=== PATIENT | female | born 1995 | race African-American/Black ===

== ENCOUNTER 2019-06-19 01:20 | Inpatient (IN) | payer OTHER ==
[2019-06-19 01:58] LABS: Urine Appearance Clear; Urine Bilirubin Negative (Negative); Urine Blood Negative (Negative); Urine Color Straw; Urine Glucose Negative (Negative); Urine Ketones Negative (Negative); Urine Nitrite Negative (Negative); Urine Protein Negative (Negative); Urine Specific Gravity 1.006 (1.010-1.030); Urine Urobilinogen Negative (Negative)
[2019-06-19 02:17] LABS: Urine Benzodiazepine Screen None Detected (None Detect); Urine Opiates Screen None Detected (None Detect)
[2019-06-19] MEDS ORDERED: Buffered Lidocaine 1% SYRIN* 1 ML/SYRINGE INTRADERM ONE (03:02)
[2019-06-19] MEDS ORDERED: ceFOXitin 2 GM IVPREMIX* 2 GM/50 ML BAG IVPB ONE (03:02)
[2019-06-19] MEDS ORDERED: Lactated Ringers 1000 ML Bag* 1,000 ML IV ONE (03:02)
[2019-06-19 03:40] LABS: Hematocrit 39 % (35-47); Hemoglobin 13.2 g/dL (12.0-16.0); Mean Corpuscular HGB Conc 34 g/dL (31-36); Mean Corpuscular Hemoglobin 30 pg (27-31); Mean Corpuscular Volume 88 fL (80-97); Platelet Count 168 10^3/uL (150-450); Red Blood Count 4.42 10^6 /uL (3.70-4.87); Red Cell Distribution Width 13 % (10-15); White Blood Count 11.1 10^3/uL (3.5-10.8)
[2019-06-19 03:54] LABS: ALT 13 U/L (7-52); AST 18 U/L (13-39); Albumin 3.6 g/dL (3.2-5.2); Alkaline Phosphatase 142 U/L (34-104); Anion Gap 9 mmol/L (2-11); BUN/Creatinine Ratio 12.7 (8-20); Blood Urea Nitrogen 7 mg/dL (6-24); CO2 Carbon Dioxide 22 mmol/L (22-32); Chloride 105 mmol/L (101-111); EGFR African American 168.8 (>60); EGFR Non-African American 139.5 (>60); Globulin 3.6 g/dL (2-4); Glucose 74 mg/dL (70-100); Potassium 3.7 mmol/L (3.5-5.0); Sodium 136 mmol/L (135-145); Total Protein 7.2 g/dL (6.4-8.9)
[2019-06-19] MEDS ORDERED: Lactated Ringers 1000 ML Bag* 1,000 ML IV SCH ×2 (04:00→10:00)
--- NOTE | 2019-06-19 04:03 | HP ---
General Information - Reason for Visit pain at c/s scar site, term , history of x 2, short interval - General Information Maternal Age: 23 Grav: 3 Para: 2 Estimated Due Date: 06/19/19 Determined By: 2nd Trimester USN Gestational Age in Weeks/Days: 40w0d Maternal Blood Type and Rh: O Positive - Results this Serology/RPR Result: Non-Reactive Rubella Result: Immune HBsAg Result: Negative HIV Result: Negative Past Medical History Delivery History: Hx C/Section - History of section x 2. G1 for NRFHT. G2 elective repeat on 05/19/2019. This gestation is Short Interval Pregnanc Pertinent Past Medical History: Non-Contributory Pertinent Past Surgical History: See Records Pertinent Family History: Non-Contributory - Antepartal Records Antepartal Records: Reviewed, Complicated by: - Limited care , hx of x 2, short interval Review of Systems Constitutional: Comfortable CV Complaint: No Respiratory: Shortness of Breath: No Gastrointestinal: No Nausea/Vomiting, Normal Bowel Movement Genitourinary: No Dysuria, No Bleeding, No Leaking Fluid Musculoskeletal: No Complaint, No Epigastric Pain Neurological: No Headache, No Visual Changes Movement: Normal Exam T 98.3 BP 109/67 P 70 O2 Sat 100% Lab Values - Entire Visit: Laboratory Tests 06/19/19 06/19/19 06/19/19 01:46 01:46 03:00 WBC 11.1 H RBC 4.42 Hgb 13.2 Hct 39 MCV 88 MCH 30 MCHC 34 RDW 13 Plt Count 168 MPV 10.0 Sodium Potassium Chloride Carbon Dioxide Anion Gap BUN Creatinine Est GFR ( Amer) Est GFR (Non-Af Amer) BUN/Creatinine Ratio Glucose Calcium Total Bilirubin AST ALT Alkaline Phosphatase Total Protein Albumin Globulin Albumin/Globulin Ratio Urine Color Straw Urine Appearance Clear Urine pH 7.0 Ur Specific Golden 1.006 L Urine Protein Negative Urine Ketones Negative Urine Blood Negative Urine Nitrate Negative Urine Bilirubin Negative Urine Urobilinogen Negative Ur Leukocyte Esterase Negative Urine Glucose Negative Urine Opiates Screen None detected Ur Barbiturates Screen None detected Ur Phencyclidine Scrn None detected Ur Amphetamines Screen None detected U Benzodiazepines Scrn None detected Urine Cocaine Screen None detected U Cannabinoids Screen None detected Blood Type 06/19/19 06/19/19 03:00 03:00 WBC RBC Hgb Hct MCV MCH MCHC RDW Plt Count MPV Sodium 136 Potassium 3.7 Chloride 105 Carbon Dioxide 22 Anion Gap 9 BUN 7 Creatinine 0.55 Est GFR ( Amer) 168.8 Est GFR (Non-Af Amer) 139.5 BUN/Creatinine Ratio 12.7 Glucose 74 Calcium 10.0 Total Bilirubin 0.30 AST 18 ALT 13 Alkaline Phosphatase 142 H Total Protein 7.2 Albumin 3.6 Globulin 3.6 Albumin/Globulin Ratio 1.0 Urine Color Urine Appearance Urine pH Ur Specific Golden Urine Protein Urine Ketones Urine Blood Urine Nitrate Urine Bilirubin Urine Urobilinogen Ur Leukocyte Esterase Urine Glucose Urine Opiates Screen Ur Barbiturates Screen Ur Phencyclidine Scrn Ur Amphetamines Screen U Benzodiazepines Scrn Urine Cocaine Screen U Cannabinoids Screen Blood Type O Positive - Measurements Height: 5 ft 4 in Weight: 230 lb Body Mass Index (BMI): 39.4 - Exam Breast: Breast Exam Deferred CVA: No CVA Tenderness Extremities: No Edema Heart: Normal Rhythm/Heart Sounds HEENT: No Significant Findings Lungs: Clear Bilaterally Rectal: Rectal Exam Deferred Reflexes: DTR 2+ Thyroid: No Thyromegaly - Abdominal Exam Abdomen Exam: Non-Tender, Fundal Height Consistent with Dates - Ultrasound/Biophysical Profile Ultrasound Status: Bedside Exam Ultrasound Findings: BPD measures 38w3d, Femur Length 40w0d, TIERNEY 13, Vertex, posterior placenta, active fetus Biophysical Profile: Normal Amniotic Fluid, Normal Gross Body Movements, Normal Muscle Tone, Normal Breathing, Normal Reactive NST Biophysical Profile - Points Available: 10 Points Targeted Exam Findings Estimated Weight: 7# Cervical Exam: 1cm Effacement: 50% Station: -3 Presenting Part: Vertex Membrane Status: Intact Bleeding/Discharge: None EFM Findings - External Monitor Findings Baseline Heart Rate: 140 External Monitor Findings: Accelerations Present, No Pattern of Variable or Late Decelerations, Variability Moderate, Baseline Stable External Monitor Findings Comment: reactive NST with moderate variability Contractions: Irregular, 45-90 Seconds Assessment/Plan - Assessment 14 y/o at 40w0d by 2nd trimester USN with history of x 2 and current short interval - Not in labor - Low suspicion for uterine rupture, though pt is at a high risk given hx of x 2 and current short interval - Fetus is reactive and reassuring, bedside USN is consistent with term gestation as reported in medical records and USN performed on 01/15/2019 dating her at 17w6d at that time with an EDC of June 19, 2019 - Patient has had limited care, reports that she has limited access to transportation and and limited resources, states that she was planning to just come to the hospital when she went in to labor - RH+/Rubella Immune - GBS collected and pending - CBC, T&S, 28wk prenatals collected and pending - Obstetrical Risk Factors Obstetrical Risk Factors: GBS Unknown, Obesity, Previous C/Section in Labor, Psychosocial Issues Risk Factors Comment: Limited care - Plan Plan: C/S Delivery Plan Comment: Admit to labor and delivery Collect labs and continuously monitor Last diet was [place] Juice and chips at 1030pm. Plan to proceed with repeat in the AM as long as stable If indicated will proceed to OR sooner - Date/Time of Admission Date of Admission: 06/19/19
[2019-06-19 04:25] LABS: Rubella Screen IgG Immune (Immune)
[2019-06-19 04:29] LABS: HIV 4th Generation Nonreactive (Nonreactive)
[2019-06-19 04:47] LABS: Hepatitis B Surface Ab Not Immune (Immune)
[2019-06-19 07:32] LABS: Hepatitis B Surface Antigen Nonreactive (Nonreactive)
[2019-06-19] MEDS ORDERED: Morphine PF AMP (0.5MG/ML)* 5 MG/10 ML AMP ONE (07:43)
[2019-06-19] MEDS ORDERED: Phenylephrine 40 MCG/ML SYRINGE ONE (07:43)
[2019-06-19] MEDS ORDERED: OXYTOCIN* 10 UNITS/ML 1 ML VIAL ONE (07:43)
[2019-06-19] MEDS ORDERED: fentaNYL* 50 MCG/ML 2 ML VIAL (100 MCG VIAL) IV PRN (08:33)
[2019-06-19] MEDS ORDERED: Naloxone* 0.4 MG/ML 1 ML VIAL IV PRN ×2 (08:33→08:35)
[2019-06-19] MEDS ORDERED: Ondansetron INJ* 2 MG/ML VIAL IV PRN ×2 (08:33→08:35)
[2019-06-19] MEDS ORDERED: diPHENhydraMINE IV* 50 MG/ML 1 ml VIAL (BENADRYL) IV PRN (08:35)
[2019-06-19] MEDS ORDERED: oxyCODONE/Acetamin 5/325 MG* TAB PO PRN ×2 (08:35)
[2019-06-19] MEDS ORDERED: Nalbuphine* 10 MG/ML 1 ML VIAL IV PRN (08:35)
[2019-06-19] MEDS ORDERED: Ondansetron INJ* 2 MG/ML VIAL ONE (08:46)
[2019-06-19] MEDS ORDERED: Glycerin ADULT SUPP PR PRN (09:34)
[2019-06-19] MEDS ORDERED: Zolpidem TAB* 5 MG PO PRN (09:34)
[2019-06-19] MEDS ORDERED: Dibucaine 1% 28.35 GM TUBE PR PRN (09:34)
[2019-06-19] MEDS ORDERED: Witch Hazel PAD* JAR TOPICAL PRN (09:34)
[2019-06-19] MEDS: Ketorolac INJ* 30 MG/ML 1 ML VIAL IV PRN ×2 (10:34→16:29)
[2019-06-19] MEDS: Simethicone TAB* 80 MG TAB.CHEW PO SCH ×2 (13:09→22:02)
[2019-06-19] MEDS: Docusate CAP* 100 MG PO SCH ×2 (16:28→22:02)
[2019-06-20] MEDS ORDERED: oxyCODONE/Acetamin 5/325 MG* TAB PO PRN (00:35)
[2019-06-20] MEDS: Ketorolac INJ* 30 MG/ML 1 ML VIAL IV PRN (04:22)
[2019-06-20] MEDS: Acetaminophen TAB* 325 MG PO PRN ×4 (04:23→19:50)
[2019-06-20] MEDS: Simethicone TAB* 80 MG TAB.CHEW PO SCH ×4 (08:26→21:26)
[2019-06-20] MEDS: Docusate CAP* 100 MG PO SCH ×3 (08:27→21:25)
[2019-06-20] MEDS ORDERED: Influenza VAC *QUAD* 2019-20* 0.5 ML SYRINGE IM ONE (09:00)
[2019-06-20] MEDS ORDERED: Ferrous Gluconate TAB* 324 MG TAB PO SCH (09:00)
[2019-06-20 09:11] LABS: ABS Eosinophils 0.2 10^3/ul (0-0.6); ABS Lymphocytes 2.1 10^3/ul (1.0-4.8); ABS Monocytes 0.7 10^3/ul (0-0.8); Eosinophil % 1.5 %; Hematocrit 35 % (35-47); Hemoglobin 11.7 g/dL (12.0-16.0); Lymphocyte % 17.6 %; Mean Corpuscular HGB Conc 33 g/dL (31-36); Mean Corpuscular Hemoglobin 30 pg (27-31); Mean Corpuscular Volume 89 fL (80-97); Mean Platelet Volume 9.2 fL (7.4-10.4); Nucleated Red Blood Cells % 0.1; Platelet Count 149 10^3/uL (150-450); Red Blood Count 3.92 10^6 /uL (3.70-4.87); Red Cell Distribution Width 14 % (10-15); White Blood Count 12.1 10^3/uL (3.5-10.8)
[2019-06-20] MEDS: Ibuprofen TAB* 600 MG PO PRN ×3 (11:26→23:43)
[2019-06-20] MEDS ORDERED: Varicella Virus Vaccine Live* 0.5 ML VIAL SUBCUT ONE (17:11)
[2019-06-20] MEDS ORDERED: Tetan/Diph/Pertus SYR(Tdap)* 0.5 ML SYR(BOOSTRIX) use SYR contains LATEX IM ONE (17:12)
[2019-06-20] MEDS: oxyCODONE/Acetamin 5/325 MG* TAB PO PRN (23:44)
[2019-06-21] MEDS: oxyCODONE/Acetamin 5/325 MG* TAB PO PRN ×2 (04:53→20:50)
[2019-06-21] MEDS: Ibuprofen TAB* 600 MG PO PRN ×3 (06:14→17:56)
[2019-06-21] MEDS: Simethicone TAB* 80 MG TAB.CHEW PO SCH ×5 (08:30→20:49)
[2019-06-21] MEDS: Docusate CAP* 100 MG PO SCH ×4 (09:00→20:48)
[2019-06-22] MEDS: Simethicone TAB* 80 MG TAB.CHEW PO SCH ×3 (06:59→12:42)
[2019-06-22] MEDS: oxyCODONE/Acetamin 5/325 MG* TAB PO PRN (08:05)
[2019-06-22] MEDS: Ibuprofen TAB* 600 MG PO PRN (08:05)
[2019-06-22 08:08] VITALS: BP 149/79
[2019-06-22] MEDS: Docusate CAP* 100 MG PO SCH (09:10)
--- NOTE | 2019-06-22 10:03 | OP ---
OPERATIVE REPORT: DATE OF OPERATION: 06/19/19 DATE OF : 89 SURGEON: Ankur Willett, RING PACKER: Di Mancilla MD ANESTHESIA: Spinal. PRE-OP DIAGNOSES: 1. Single intrauterine at term. 2. History of section x2. POST-OP DIAGNOSES: 1. Single intrauterine at term. 2. History of section x2. OPERATIVE PROCEDURE: Primary low transverse section via Pfannenstiel incision. ESTIMATED BLOOD LOSS: 600 mL. IV FLUIDS FOR THE CASE: 2050mL. URINE OUTPUT: 150 mL. SPECIMENS: Placenta discarded. COMPLICATIONS: None. INDICATIONS AND CONSENT: The patient presented to the hospital, complaining of incisional pain, had limited care during this . 40 weeks gestation by 2nd trimester USN at time of presentation, history of 2 sections, most recent delivery 13 months ago making this gestation a short- interval . section was recommended to the patient. The patient understood that the risks of section include, but are not limited to visceral or vascular injury, infection, blood loss, need for transfusion, prolonged hospitalization, and reoperation. The patient stated understanding and desired to proceed. All questions were answered. Written consent was obtained. FINDINGS: Male infant in vertex position, APGARS 8 and 9, 7 pounds 5 oz. Moderate superficial scar tissue, minimal adhesive disease. Uterus, fallopian tubes and ovaries WNL bilaterally DESCRIPTION OF PROCEDURE: The patient was taken to the operating room where spinal anesthesia was administered and found to be adequate. 2 g of cefoxitin was given for infection prophylaxis. She was prepped and draped in the dorsal supine position with a leftward tilt. A Pfannenstiel skin incision was made with the scalpel at the site of prior incision for prior cesareans. The incision was carried down to the fascia with the Bovie through moderate scar tissue. The fascia was incised and extended laterally. The inferior aspect of the fascia was grasped with Alex clamps. The underlying rectus muscle and pyramidalis was dissected off sharply with Francois scissors. In a similar fashion , the superior aspect of the fascia was elevated with Alex and the rectus muscle was dissected off. Hemostasis was achieved with the Bovie. The rectus muscle was in the midline down to the level of the pubic symphysis. Preperitoneal fatty tissue was bluntly dissected to expose the peritoneum. The peritoneum was found to be free of adherent bowel and entered sharply with Metzenbaum scissors. The peritoneal incision was extended superiorly and inferiorly to the bladder reflection with good visualization of the bladder. The bladder blade was inserted and vesicouterine peritoneum identified. Intraabdominal survey revealed scant clear peritoneal fluid and thinned out lower uterine segment. The lower uterine segment was incised with a scalpel. The amniotic sac ruptured spontaneously and clear fluid was noted. The uterine incision was extended bluntly with cephalocaudad traction. The fetus was in cephalic presentation. The head was elevated out of the pelvis with special attention paid to avoid using the uterine incision as a fulcrum. Gentle fundal pressure was applied once the head was brought into the incision. The infant was delivered with no difficulty. The mouth and nose were suctioned with a bulb. The cord was clamped and cut. The infant was handed off to the export manager. IV oxytocin was initiated to facilitate uterine contractions. The placenta was delivered intact with manual massage of the uterine fundus. The uterus was exteriorized and the inside of the uterus was gently wiped with a lap sponge to assure complete removal of placental membranes. The uterine incision was closed with 0-Vicryl suture in a running locked fashion. An imbricating suture was performed with another 0- Vicryl suture. The ovaries and tubes were found to be normal. The uterus, tubes, and ovaries were then returned to the abdominal cavity. The blood clots and fluid were wiped out of the abdomen and pelvis with moist laparotomy sponges. The uterine incision was reinspected and good hemostasis was noted. The peritoneum was closed with 2-0 Vicryl suture in a continuous running fashion. The fascial layer was closed with 0-Vicryl suture. The subcutaneous tissue was closed with interrupted 3-0 vicryl sutures x 3. The skin was closed with 4-0 Monocryl suture in a subcuticular fashion. The patient tolerated the procedure well. All the counts were correct x2. The patient was taken to the recovery room in a stable condition. I was present for the entire procedure. DO LLOYD Hough [id number] #: [id number] MTDD
[2019-06-22] MEDS ORDERED: medroxyPROGESTERone ACETATE (DEPOT)* 150 MG/ML 1 ML IM ONE (10:14)
== END 2019-06-22 14:15 | disposition home or self-care (01) | DRG 540 ==
LOC: MCHOBOUT 01:20 → MCHOB 03:05
PROVIDERS: ADMIT Obstetrics & Gynecology; ATTEND Obstetrics & Gynecology
PROC: 10D00Z1 Extraction of Products of Conception, Low, Open Approach (ICD-10-PCS; principal; 2019-06-19 07:56)
DX: O34.211 Maternal care for low transverse scar from previous cesarean delivery (principal); O99.214 Obesity complicating childbirth; O99.344 Other mental disorders complicating childbirth; F99 Mental disorder, not otherwise specified; Z3A.40 40 weeks gestation of pregnancy; Z37.0 Single live birth
CPT/HCPCS: 36415; 76815; 80053; 80307; 81003; 85025; 85027; 86706; 86762; 86780; 86850; 86900; 86901; 87070; 87340; 87389; 90686; 90715; 99282; A9270-GY; J0694; J1050; J1885; J2405; J2590

== ENCOUNTER 2024-08-19 05:30 | Inpatient (IN) ==
[2024-08-19] MEDS: Lactated Ringers 1000 ml BAG 1,000 ML IV ONE (06:04)
[2024-08-19] MEDS ORDERED: Ondansetron 4 mg VIAL 2 MG/ML 2 ml VIAL ONE (06:31)
[2024-08-19] MEDS ORDERED: Dexamethasone IV 4 MG/ML VIAL 1 ml VIAL ONE (06:31)
[2024-08-19] MEDS ORDERED: Phenylephrine IV 10 MG/ML 1 ml VIAL ONE ×3 (06:34→07:24)
[2024-08-19 07:05] LABS: Hematocrit 36.3 % (35-45); Hemoglobin 12.4 g/dL (11.5-14.3); Mean Corpuscular Hemoglobin 30.2 pg (27-33); Mean Corpuscular Hgb Conc 34.3 g/dL (31-36); Mean Corpuscular Volume 88.1 fL (80-97); Mean Platelet Volume 8.9 fL (7.5-11.2); Platelet Count 207 10^3/uL (150-450); Red Blood Count 4.12 10^6/uL (3.63-4.92); Red Cell Distribution Width 15.8 % (12-17); White Blood Count 10.5 10^3/uL (3.8-11.8)
[2024-08-19] MEDS ORDERED: Ondansetron 4 mg VIAL 2 MG/ML 2 ml VIAL IV PRN (07:05)
[2024-08-19] MEDS ORDERED: Naloxone 0.4 mg VIAL 0.4 mg/ml 1 ml VIAL IV PUSH PRN (07:05)
[2024-08-19] MEDS ORDERED: Metoclopramide 5 MG/ML VIAL (10 mg) IV PRN (07:05)
[2024-08-19] MEDS: Buffered Lidocaine 1% SYRIN 1 ml INTRADERM ONE (07:09)
[2024-08-19] MEDS ORDERED: Phenylephrine 40 mcg/mL 10mL (400mcg) SYRINGE ONE (07:11)
[2024-08-19] MEDS ORDERED: Morphine PF AMP (0.5MG/ML) 5 MG/10 ML AMP ONE (07:25)
[2024-08-19] MEDS ORDERED: fentaNYL 100 mcg/2 ml 50 MCG/ML VIAL ONE (07:25)
[2024-08-19 07:36] LABS: ABS Eosinophils 0.1 10^3/uL (0.0-0.5); ABS Lymphocytes 2.6 10^3/uL (1.0-4.8); ABS Monocytes 0.7 10^3/uL (0.0-0.9); ABS Neutrophils 7.2 10^3/uL (1.5-7.6); Anisocytosis 1+; Eosinophil % 0.8 %; Lymphocyte % 24.6 %
[2024-08-19] MEDS: Sodium Citrate/Citric Acid LIQ 15 ML UDC PO ONE ×2 (07:45→14:33)
[2024-08-19] MEDS: ceFOXitin 2 GM IVPREMIX 2 GM/50 ML BAG IVPB ONE (08:05)
[2024-08-19] MEDS ORDERED: Oxytocin 10 UNITS/ML 1 ML VIAL ONE ×2 (08:29→09:14)
[2024-08-19] MEDS ORDERED: Acetaminophen IV 1 GM/100ML 1,000 MG/100 ML BAG IV ONE (08:34)
[2024-08-19] MEDS: Acetaminophen IV 1 GM/100ML 1,000 MG/100 ML BAG IV PRN (08:36)
[2024-08-19] MEDS: Lactated Ringers 1000 ml BAG 1,000 ML IV SCH (09:08)
[2024-08-19 09:15] LABS: Urine Appearance Clear; Urine Bilirubin Negative (Negative); Urine Blood Negative (Negative); Urine Color Colorless; Urine Glucose Negative (Negative); Urine Ketones Negative (Negative); Urine Nitrite Negative (Negative); Urine Protein Negative (Negative); Urine Specific Gravity 1.008 (1.002-1.030); Urine Urobilinogen Negative (Negative); Urine pH 7.5 (5.0-8.0)
[2024-08-19 09:45] LABS: Urine Benzodiazepine Screen None Detected (None Detect); Urine Cannabinoids Screen None Detected (None Detect); Urine Opiates Screen None Detected (None Detect)
[2024-08-19] MEDS ORDERED: Glycerin ADULT 2.4 gm SUPP PR PRN (09:50)
[2024-08-19] MEDS ORDERED: Dibucaine 1% OINT 28.35 GM TUBE PR PRN (09:50)
[2024-08-19] MEDS ORDERED: Witch Hazel PAD JAR TOPICAL PRN (09:50)
[2024-08-19] MEDS ORDERED: Lactated Ringers 1000 ml BAG 1,000 ML IV SCH (10:00)
[2024-08-19] MEDS: Oxytocin in NS 30,000 MILLI.UNIT/500 ML BAG IV SCH (16:07)
[2024-08-20 07:22] LABS: Hemoglobin 11.8 g/dL (11.5-14.3); Mean Corpuscular Hemoglobin 30.8 pg (27-33); Mean Corpuscular Hgb Conc 34.6 g/dL (31-36); Mean Corpuscular Volume 89.1 fL (80-97); Mean Platelet Volume 8.9 fL (7.5-11.2); Platelet Count 190 10^3/uL (150-450); Red Blood Count 3.81 10^6/uL (3.63-4.92); Red Cell Distribution Width 14.9 % (12-17); White Blood Count 19.3 10^3/uL (3.8-11.8)
[2024-08-20 08:36] LABS: ABS Basophils 0.1 10^3/uL (0.0-0.1); ABS Eosinophils 0.1 10^3/uL (0.0-0.5); ABS Lymphocytes 2.7 10^3/uL (1.0-4.8); ABS Monocytes 1.5 10^3/uL (0.0-0.9); ABS Neutrophils 14.9 10^3/uL (1.5-7.6); Eosinophil % 0.8 %; Lymphocyte % 13.8 %
[2024-08-22 09:49] VITALS: BP 118/70
== END 2024-08-22 12:05 | disposition home or self-care (01) | DRG 540 ==
LOC: MCHOB 05:30
PROVIDERS: ADMIT Obstetrics & Gynecology; ATTEND Obstetrics & Gynecology